=== PATIENT | female | born 1965 | race Caucasian/White ===

== ENCOUNTER 2022-11-14 17:06 | Outpatient (CLI) | payer BC, SELFPAY ==
--- NOTE | 2022-11-14 17:15 | CRLHL7_ITS ---
For Patients: As a result of the Century Cures Act, medical imaging exams and procedure reports are released immediately into your electronic medical record. You may view this report before your referring provider. If you have questions, please contact your health care provider. BILATERAL SCREENING MAMMOGRAM WITH COMPUTER-AIDED DETECTION AND TOMOSYNTHESIS TECHNIQUE: CC and MLO views were obtained. These mammographic images have been obtained using full-field digital technique. These mammographic images were interpreted with the benefit of computer-aided detection. Breast Tomosynthesis was used in this interpretation. COMPARISON FILM: 05/03/21, 02/06/20, 06/27/18. FINDINGS: The breasts are heterogeneously dense, which may obscure small masses IMPRESSION: There is no radiographic evidence for malignancy. ASSESSMENT: BI-RADS Category 1: Negative RECOMMENDATION: Routine screening mammogram in 1 year. A lay language report of this examination will be provided to the patient. Bob Hampton M.D. Diagnostic Radiologist [email or web address] KULDEEP/Dictated by: Bob Hampton MD @ 11/15/2022 12:40:00 PM (Electronically Signed)
== END 2022-11-14 17:07 | disposition home or self-care (01) ==
LOC: MAMMO 17:06
PROVIDERS: PCP Family Medicine; Visit Provider Family Medicine
DX: Z12.31 Encounter for screening mammogram for malignant neoplasm of breast (principal); R92.2 Inconclusive mammogram
CPT/HCPCS: 77063; 77067

== ENCOUNTER 2023-02-09 07:48 | Outpatient (CLI) | payer BC, SELFPAY | END 2023-02-09 07:49 | disposition home or self-care (01) | PROVIDERS: PCP Family Medicine; Visit Provider Family Medicine | DX: Z00.00 Encounter for general adult medical examination without abnormal findings (principal); E78.5 Hyperlipidemia, unspecified; E03.9 Hypothyroidism, unspecified; R03.0 Elevated blood-pressure reading, without diagnosis of hypertension; M85.80 Other specified disorders of bone density and structure, unspecified site | CPT/HCPCS: 80053; 80061; 82306; 84439; 84443 ==

== ENCOUNTER 2023-11-30 06:42 | Emergency (ER) | payer BC, SELFPAY ==
[2023-11-30 06:51] VITALS: BP 149/91; PULSE 80; RESP 16; TEMP 36.7; O2SAT 98
--- NOTE | 2023-11-30 06:57 | ED.GENADULT ---
HPI - General Adult General Time Seen by Provider: 06:57 Date Seen: 11/30/23 Chief complaint: Unspecified Complaint, Adult Stated complaint: Took dogs trazedone accidently, rash around eyes Time Seen by Provider: 11/30/23 06:57 Source: patient Mode of arrival: ambulatory Limitations: no limitations History of Present Illness HPI narrative: Maki is a very pleasant 58-year-old female with history of hypothyroidism who comes to the emergency room after accidentally ingesting a 50 mg tablet of her dogs trazodone. She normally takes her Synthroid in the morning and accidentally took a trazodone which she had sitting out because it was then during out and she was going to give it to her dog. Once she realized this-almost immediately-she induced vomiting. She notes that she felt a lot of pressure in her face during that time she notes that she has been dealing with some dried and mildly irritated skin along her face and around her eyes. She had planned on seeing Dermatology but had not made an appointment thus far. Since vomiting she noticed that the areas of irritation and dryness or actually quite red. Since she has been here she notes that her face is no longer burning and itching like it had been previously. Related Data Home Medications ?Medication ?Instructions ?Recorded ?Confirmed magnesium 250 mg tablet 250 mg PO QDAY 02/26/23 02/26/23 Previous Rx's ?Medication ?Instructions ?Recorded levothyroxine 75 mcg tablet 75 mcg PO .UD #135 tabs 02/09/23 clobetasol 0.05 % topical cream 1 applic topical QDAY #60 grams 02/26/23 conjugated estrogens 0.625 mg/gram 0.625 mg vaginal QDAY #30 grams 02/26/23 vaginal cream (Premarin) Allergies Allergy/AdvReac Type Severity Reaction Status Date / Time No Known Allergies Allergy Unknown Unknown Verified 02/26/23 08:26 Review of Systems Status of ROS: Reports: 6 or more systems reviewed and unremarkable except as noted in History and below [facility] Medical History Dyslipidemia ?E78.5 - Hyperlipidemia, unspecified (ICD-10) History of genital warts (1986) ?Z86.19 - Personal history of other infectious and parasitic diseases (ICD-10) Osteopenia (2014) ?M85.80 - Other specified disorders of bone density and structure, unspecified site (ICD-10) History of vaginal delivery Lichen sclerosus et atrophicus (2018) ?L90.0 - Lichen sclerosus et atrophicus (ICD-10) GERD (gastroesophageal reflux disease) ?K21.9 - Gastro-esophageal reflux disease without esophagitis (ICD-10) History of uterine leiomyoma (1998) ?Z86.018 - Personal history of other benign neoplasm (ICD-10) Endometriosis ?N80.9 - Endometriosis, unspecified (ICD-10) Patent foramen ovale ?Q21.12 - Patent foramen ovale (ICD-10) Migraine headache ?G43.909 - Migraine, unspecified, not intractable, without status migrainosus (ICD-10) Hypothyroidism ?E03.9 - Hypothyroidism, unspecified (ICD-10) Erythrocytosis (~2019) ?D75.1 - Secondary polycythemia (ICD-10) History of colonic polyps (2013) ?Z86.010 - Personal history of colonic polyps (ICD-10) Surgical History History of wisdom tooth extraction ?K08.409 - Partial loss of teeth, unspecified cause, unspecified class (ICD-10) History of hymenectomy ?Z90.79 - Acquired absence of other genital organ(s) (ICD-10) History of inguinal hernia repair, bilateral ?Z98.890 - Other specified postprocedural states (ICD-10) ?Z87.19 - Personal history of other diseases of the digestive system (ICD-10) History of cyst of breast ?Z87.2 - Personal history of diseases of the skin and subcutaneous tissue (ICD-10) History of phacoemulsification of cataract of both eyes with intraocular lens implantation (2022) ?Z98.41 - Cataract extraction status, right eye (ICD-10) ?Z98.42 - Cataract extraction status, left eye (ICD-10) ?Z96.1 - Presence of intraocular lens (ICD-10) History of laparoscopy (1998) ?Z98.890 - Other specified postprocedural states (ICD-10) History of colonoscopy (2019) ?Z98.890 - Other specified postprocedural states (ICD-10) History of appendectomy (1984) ?Z90.49 - Acquired absence of other specified parts of digestive tract (ICD-10) Family History Father Alzheimers disease, Onset Age: 77 Diabetes Maternal Grandmother Stroke, Onset Age: 88 Thyroid disease Paternal Grandmother Stroke, Onset Age: 86 Maternal Grandfather Lung cancer Paternal Grandfather Lung cancer Mother Osteoporosis Uterine fibroid Sister Kidney stones Aunt Thyroid disease Social History Narrative: , 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[employer], 1 son Non-smoker rarely consumes alcohol Exercises regularly 6-7 jogging week, hiking, [place] What is your current living situation?: I presently have a place to live In the past 12 months, utilities in danger of being shut off: no In past 12 months, lack of transportation kept you from medical appts, meetings, work, or getting things needed for daily living: no In the past 12 mos, have been you worried that your food would run out before you had money to buy more?: never true In the past 12 mos, the food you bought just didn't last and you didn't have money to buy more?: never true Smoking Status: Never smoker Do you use any of these nicotine containing products: None Second hand tobacco smoke exposure: No How often do you have a drink containing alcohol: never How often do you have six or more drinks on one occasion: Never AUDIT-C Alcohol total score: 0 Non-prescribed substance use: denies use Caffeine: Yes How often does anyone, including family, friends and others, physically hurt you: never How often does anyone, including family, friends and others, insult or talk down to you: never How often does anyone, including family, friends and others, threaten you with harm: never How often does anyone, including family, friends and others, scream or curse at you: never Little interest or pleasure in doing things: not at all Feeling down, depressed, or hopeless: not at all Are you using contraception or practicing any form of control: No service: No Exam Narrative: Exam Narrative: Alert and oriented. No acute distress. No respiratory distress. Patient does have petechiae and some erythema around both eyes and upper cheeks. School air a however are clear. There is no drainage in this area. There is dried irritated skin on the nasal labial fold on the right. Const: Vital Signs, click to edit/add: Vital Signs - 24 hr 11/30/23 06:51 Temperature 98.0 F Pulse Rate [Pulse Oximeter] 80 Respiratory Rate 16 Blood Pressure [Ri ght Upper Arm] 149/91 H Pulse Oximetry 98 Oxygen Delivery Me thod Room Air Documenting provider has reviewed patient's vital signs: yes Course Vital Signs Vital signs: Initial Vital Signs Temperature 98.0 F 11/30/23 06:51 Temperature Source Temporal Artery Scan 11/30/23 06:51 Pulse Rate 80 11/30/23 06:51 Pulse Rhythm Regular 11/30/23 06:51 Respiratory Rate 16 11/30/23 06:51 Blood Pressure 149/91 H 11/30/23 06:51 Blood Pressure Mean 110 H 11/30/23 06:51 Blood Pressure Position Supine 11/30/23 06:51 Pulse Oximetry 98 11/30/23 06:51 Oxygen Delivery Method Room Air 11/30/23 06:51 Vital Signs Temperature 98.0 F 11/30/23 06:51 Pulse Rate 80 11/30/23 06:51 Respiratory Rate 16 11/30/23 06:51 Blood Pressure 149/91 H 11/30/23 06:51 Pulse Oximetry 98 11/30/23 06:51 Oxygen Delivery Method Room Air 11/30/23 06:51 Temperature 98.0 F 11/30/23 06:51 Pulse Rate 80 11/30/23 06:51 Respiratory Rate 16 11/30/23 06:51 Blood Pressure 149/91 H 11/30/23 06:51 Pulse Oximetry 98 11/30/23 06:51 Oxygen Delivery Method Room Air 11/30/23 06:51 Medical Decision Making MDM Narrative Medical decision making narrative: 1. Accidental ingestion of trazodone-patient reassured at this time. We did contact poison Control may feel no further eval as necessary at this time. If there was any medication absorbed and it is highly unlikely given the immediate vomiting following ingestion, patient may feel somewhat sleepy. 2. Facial redness-I believe this is most likely from the self-induced retching which sounds like it was somewhat violent. Patient notes that her face was burning after this. It is starting to improve here. I have suggested the use of some 0.5% hydrocortisone cream twice a day for 5 days. I have also given her the name of a dermatology clinic at that may be able to help her. At this time I think the that this skin was likely irritated and the vomiting greatly increased the irritation. 3. Disposition-home at this time. Return for worsening symptoms. Medical Records Medical records reviewed: Yes I reviewed the patient's medical records Discharge Plan Discharge Clinical Impression: Unintentional poisoning by trazodone Patient Disposition: Home, Self-Care Condition: Improved Additional Instructions: Poison Control does not feel that we need to be concerned about this accidental ingestion of your dog's trazodone. If any of the medication had been absorbed you may experience a little bit of tiredness. Expect your rash to improved throughout the day. You may try 0.5% hydrocortisone applied twice daily to the areas of redness for 5 days. I would have you [facility]. They have multiple locations. Return as needed. Prescriptions: No Action magnesium 250 mg tablet 250 mg PO QDAY clobetasol 0.05 % cream 1 applic topical QDAY Qty: 60 1RF Rx Instructions: Apply to affected area twice per week. Premarin 0.625 mg/gram cream 0.625 mg vaginal QDAY Qty: 30 1RF Rx Instructions: Please apply to affected area twice per week. levothyroxine 75 mcg tablet 75 mcg PO .UD Qty: 135 4RF Rx Instructions: 1 tab daily, except once a week 2 tablets Follow Up/Referrals: Skye Mahomod MD [Primary Care Provider] - Stand Alone Forms: [employer] Info Instructions
--- OUTSIDE RECORDS SUMMARY | 2023-11-30 07:16 | XMS_ITS | Clinical Summary ---
Author Organization [facility] Address [place], [place] [address] Care Team Providers Care Milk Tanker Driver Name Role Phone Valdez Razo MD Primary Care Provider [phone] Allergies No known active allergies Medications Medication Sig Dispensed Refills Start Date End Date Status levothyroxine (SYNTHROID) 100 mcg tablet Take 1 tablet by mouth before breakfast. 0 02/14/2013 Active aspirin 81 mg tablet Take 1 tablet by mouth once daily with a meal. 0 02/14/2013 Active Active Problems Problem Noted Date Diagnosed Date PFO (patent foramen ovale) 02/14/2013 Headache(784.0) 02/14/2013 Migraine 02/14/2013 TIA vs spell 02/14/2013 Hypothyroidism Social History Tobacco Use Types Packs/Day Years Used Date Smoking Tobacco: Never Smokeless Tobacco: Never Alcohol Use Standard Drinks/Week Comments No 0 (1 standard drink = 0.6 oz pur e alcohol) Sex and Gender Information Value Date Recorded Sex Assigned at Not on file Gender Identity Not on file Sexual Orientation Not on file Obstetrics History Last Filed Vital Signs Vital Sign Reading Time Taken Comments Blood Pressure 132/84 07/05/2018 9:55 AM INFORMATION SERVICES ASSISTANT Pulse 80 07/05/2018 9:55 AM INFORMATION SERVICES ASSISTANT Temperature 36.8 ??C (98.2 ??F) 02/14/2013 2:17 PM CD T Respiratory Rate 14 07/05/2018 9:55 AM INFORMATION SERVICES ASSISTANT Oxygen Saturation 100% 02/14/2013 2:17 PM CDT Inhaled Oxygen Concentration - - Weight 54 kg (119 lb) 07/05/2018 9:55 AM INFORMATION SERVICES ASSISTANT Height 165.1 cm (5' 5) 02/25/2013 3:02 PM CDT Body Mass Index 19.8 02/25/2013 3:02 PM CDT Plan of Treatment Health Maintenance Due Date Last Done Comments Tdap 1974 Depression screening for age 12+ 1975 HIV for age 15-65 1978 BMI (ht and wt on same day) for age 18+ 1981 Hepatitis C screening for ag e 18-79 1981 Tetanus booster 1983 Pap test for age 21-65 1984 Colonoscopy through age 75 2008 Lipids for age 45-75 2008 Mammogram for age 45-75 2008 Zoster (shingles) series for age 50+ (1 of 2) 2013 COVID-19 vaccine series (2022- season) 2023 Influenza for age 50-64 02/03/2024 Pneumococcal series for age 6-64 Aged Out No longer eligible based on patient's age to complete this topic Care Teams Milk Tanker Driver Relationship Specialty Start Date End Date Valdez Razo MD [address] [place] [id number] PCP - General 04/02/06
== END 2023-11-30 07:29 | disposition home or self-care (01) ==
PROVIDERS: Emergency Provider Family Medicine; PCP Family Medicine
DX: R21 Rash and other nonspecific skin eruption (principal); T43.215A Adverse effect of selective serotonin and norepinephrine reuptake inhibitors, initial encounter
CPT/HCPCS: 99283

== ENCOUNTER 2024-04-10 11:32 | Outpatient (CLI) | payer BC, SELFPAY ==
--- OUTSIDE RECORDS SUMMARY | 2024-04-10 11:35 | XMS_ITS | Clinical Summary ---
Author Organization [facility] Address [place], [place] [address] Care Team Providers Care Electrician Shop Name Role Phone Valdez Razo MD Primary Care Provider [phone] Allergies No known active allergies Medications Medication [...] Comments Blood Pressure 132/84 07/05/2018 9:55 AM DIRECTOR PRIVATE Pulse 80 07/05/2018 9:55 AM DIRECTOR PRIVATE Temperature 36.8 ??C (98.2 ??F) 02/14/2013 2:17 PM CD T Respiratory Rate 14 07/05/2018 9:55 AM DIRECTOR PRIVATE Oxygen Saturation 100% 02/14/2013 2:17 PM CDT Inhaled Oxygen Concentration - - Weight 54 kg (119 lb) 07/05/2018 9:55 AM DIRECTOR PRIVATE Height 165.1 cm (5' 5) 02/25/2013 3:02 [...] (1 of 2) 2013 COVID-19 vaccine series (2023- season) 2024 Influenza for age 50-64 02/03/2024 Pneumococcal series for age 6-64 Aged Out No longer eligible based on patient's age to complete this topic Care Teams Electrician Shop Relationship Specialty Start Date End Date Valdez Razo MD [address] [place] [phone] PCP - General 04/02/06
[2024-04-22 13:12] LABS: HPV Source Cervical; HPV, High Risk by TMA Not Detected
== END 2024-04-10 11:33 | disposition home or self-care (01) ==
LOC: NFLDREF 11:34
PROVIDERS: PCP Family Medicine; Visit Provider Obstetrics & Gynecology
DX: Z12.4 Encounter for screening for malignant neoplasm of cervix (principal)
CPT/HCPCS: 87624; 87625; 88141; 88142